=== PATIENT | female | born 1935 | race Two or more races ===

== ENCOUNTER 2016-08-16 18:16 | Inpatient (IN) | payer OTHER, MEDICAID ==
[~2016-08-16] VITALS: Ht 165.1 cm; Wt 107.0 kg
[2016-08-16 20:17] LABS: Albumin 2.8 g/dL (3.4-5.0); BUN/Creatinine Ratio 36.8; Calcium 8.1 mg/dL (8.5-10.1); Magnesium 3.2 mg/dL (1.6-2.6); Potassium 4.9 mmol/L (3.5-5.1)
[2016-08-16 20:20] LABS: Bilirubin, Total 10.1 mg/dL (0.2-1.0); Total Protein 5.9 g/dL (6.4-8.2)
[2016-08-16] MEDS ORDERED: SODIUM CHLORIDE 0.9% 1,000 ML IV ONE (20:47)
[2016-08-16 20:48] LABS: Basophils # (auto) 0.1 uL; Basophils % (auto) 2.2 % (0.0-2.0); Eosinophils # (auto) 0 uL; Eosinophils % (auto) 0.1 % (0.0-7.0); Lymphocytes # (auto) 0.5 uL; Lymphocytes % (auto) 8.2 % (10.0-50.0); Monocytes # (auto) 0.3 uL; Monocytes % (auto) 4.6 % (0.0-12.0); Neutrophils # (auto) 5.6 uL; Neutrophils % (auto) 84.9 % (37.0-80.0); White Blood Cell 6.5 10^3/uL (4.4-10.8)
[2016-08-16 20:49] LABS: Anisocytosis Moderate; Hematocrit 27.6 % (36.0-46.0); Hemoglobin 8.8 g/dL (12.2-16.2); Mean Corpuscular Hgb Conc. 31.8 g/dL (32.0-36.0); Mean Corpuscular Volume 81.9 fL (80.0-100.0); Mean Platelet Volume 9.6 fL (7.4-10.4); Platelet Count (auto) 106 10^3/uL (140-450); Platelet Estimate Decreased
[2016-08-16 20:50] LABS: Hypochromia Moderate; Ovalocytes FEW
[2016-08-16 22:02] LABS: Basophils # (auto) 0 uL; DEFINITIVE VIEW TRANSMISSION; Eosinophils # (auto) 0 uL; Eosinophils % (auto) 0.2 % (0.0-7.0); Hematocrit 26.6 % (36.0-46.0); Hemoglobin 8.3 g/dL (12.2-16.2); Lymphocytes # (auto) 0.4 uL; Lymphocytes % (auto) 5.4 % (10.0-50.0); Mean Corpuscular Hemoglobin 25.7 pg (28.0-32.0); Mean Corpuscular Hgb Conc. 31.2 g/dL (32.0-36.0); Mean Corpuscular Volume 82.3 fL (80.0-100.0); Mean Platelet Volume 9.6 fL (7.4-10.4); Monocytes # (auto) 0.5 uL; Monocytes % (auto) 7.6 % (0.0-12.0); Neutrophils # (auto) 5.6 uL; Neutrophils % (auto) 86.8 % (37.0-80.0); Platelet Count (auto) 146 10^3/uL (140-450); White Blood Cell 6.4 10^3/uL (4.4-10.8)
[2016-08-16 22:05] LABS: Red Cell Distribution Width 24.2 % (11.6-16.0)
[2016-08-16 22:16] LABS: Albumin 2.8 g/dL (3.4-5.0); BUN/Creatinine Ratio 37.1; Calcium 8.3 mg/dL (8.5-10.1); Magnesium 3.3 mg/dL (1.6-2.6); Potassium 4.8 mmol/L (3.5-5.1); Total Protein 5.9 g/dL (6.4-8.2)
[2016-08-16 22:20] LABS: Bilirubin, Total 9.9 mg/dL (0.2-1.0)
[2016-08-16 22:42] LABS: Anisocytosis Moderate; Hypochromia Moderate; Ovalocytes FEW; Platelet Estimate Adequate
[2016-08-16 22:43] LABS: Stomatocytes Few
[2016-08-16] MEDS ORDERED: FUROSEMIDE 40 MG/4 ML VIAL IV ONE (23:15)
[2016-08-17] VITALS (9 sets, daily range): BP systolic 84–104; BP diastolic 42–70
[2016-08-17 00:51] LABS: INR > 10 (0.9-1.15)
[2016-08-17] MEDS ORDERED: PHYTONADIONE (VIT K)10 MG/ML 1ML VIAL SUBCUT ONE (01:15)
[2016-08-17 05:50] LABS: Temperature: 20.4 C (20.0-25.0)
[2016-08-17] MEDS ORDERED: NITROGLYCERIN 0.4 MG SL TAB SL PRN (06:15)
[2016-08-17] MEDS ORDERED: MORPHINE SULF INJ 2 MG/ML SYRINGE 1ML IV PRN (06:15)
[2016-08-17] MEDS ORDERED: HYDROcodone-ACET 5/325MG TAB PO PRN (06:15)
[2016-08-17] MEDS ORDERED: FUROSEMIDE 20 MG/2 ML VIAL IV ONE (06:15)
[2016-08-17] MEDS ORDERED: ONDANSETRON HCL 4 MG/2 ML VIAL IV PRN (06:15)
[2016-08-17] MEDS ORDERED: ACETAMINOPHEN 325 MG TAB PO PRN (06:15)
[2016-08-17] MEDS ORDERED: ALBUMIN 25% 50 ML IV ONE (06:15)
[2016-08-17 09:36] LABS: INR 3.3 (0.9-1.15); Partial Thromboplastin Time 54.5 sec (22.64-33.71); Prothrombin Time 34.8 sec (9.37-12.3)
[2016-08-17] MEDS ORDERED: FUROSEMIDE 40 MG TAB PO SCH (10:00)
[2016-08-17] MEDS: PANTOPRAZOLE SODIUM 40 MG/10 ML VIAL IV SCH ×2 (10:11→21:45)
[2016-08-17] MEDS ORDERED: HYDR12.56 PO (11:29)
[2016-08-17] MEDS ORDERED: WARF3TAB22 PO (11:29)
[2016-08-17 15:11] LABS: Partial Thromboplastin Time 52.5 sec (22.64-33.71); Prothrombin Time 43.8 sec (9.37-12.3)
[2016-08-17 15:13] LABS: INR 4.18 (0.9-1.15)
[2016-08-17] MEDS: BUMETANIDE (0.25 MG/ML) INJ 10ML IV SCH (18:00)
[2016-08-18] VITALS (8 sets, daily range): BP systolic 79–101; BP diastolic 30–53
[2016-08-18] MEDS: BUMETANIDE (0.25 MG/ML) INJ 10ML IV SCH ×2 (05:45→18:54)
[2016-08-18 07:49] LABS: Urine Bilirubin Negative (Negative); Urine Color Yellow (Yellow); Urine Glucose Normal (Normal); Urine Hyaline Cast MOD /lpf (0 - 2); Urine Ketone Negative (Negative); Urine Nitrite Negative (Negative); Urine RBC 100 /hpf (0 - 4); Urine Squamous Epithelial Cell FEW /hpf (<5)
[2016-08-18 07:56] LABS: DEFINITIVE VIEW TRANSMISSION; Hematocrit 23.8 % (36.0-46.0); Hemoglobin 7.5 g/dL (12.2-16.2); Mean Corpuscular Hgb Conc. 31.4 g/dL (32.0-36.0); Mean Corpuscular Volume 82.6 fL (80.0-100.0); Mean Platelet Volume 9.8 fL (7.4-10.4); Platelet Count (auto) 107 10^3/uL (140-450); White Blood Cell 9.5 10^3/uL (4.4-10.8)
[2016-08-18 07:58] LABS: Urine Blood 2+ /uL (Negative)
[2016-08-18 08:08] LABS: Albumin 3.1 g/dL (3.4-5.0); BUN/Creatinine Ratio 38.2; Bilirubin, Total 11.2 mg/dL (0.2-1.0); Calcium 8.7 mg/dL (8.5-10.1); Phosphorus 3.7 mg/dL (2.5-4.90); Potassium 3.6 mmol/L (3.5-5.1); Total Protein 6.3 g/dL (6.4-8.2)
[2016-08-18 08:20] LABS: Red Cell Distribution Width 24.1 % (11.6-16.0)
[2016-08-18 08:21] LABS: Metamyelocytes % 0; Myelocytes % 0; Promyelocytes % 0; Reactive Lymphocytes 0
[2016-08-18 08:24] LABS: INR 3.35 (0.9-1.15); Partial Thromboplastin Time 45.2 sec (22.64-33.71); Prothrombin Time 35.3 sec (9.37-12.3)
[2016-08-18] MEDS: PANTOPRAZOLE SODIUM 40 MG/10 ML VIAL IV SCH ×2 (10:15→21:51)
[2016-08-18 19:34] LABS: Platelet Estimate Decreased
[2016-08-18 19:35] LABS: Anisocytosis Moderate; Hypochromia Moderate; Ovalocytes FEW
[2016-08-18] MEDS: POTASSIUM CHL 20MEQ/100ML 100 ML IV SCH ×2 (20:00→21:51)
[2016-08-19 04:55] VITALS: BP 84/39
[2016-08-19] MEDS: BUMETANIDE (0.25 MG/ML) INJ 10ML IV SCH (06:00)
[2016-08-19 06:16] LABS: Calcium 8.6 mg/dL (8.5-10.1)
[2016-08-19 06:19] LABS: Bilirubin, Total 12.1 mg/dL (0.2-1.0)
[2016-08-19 06:23] LABS: BUN/Creatinine Ratio 37.3
[2016-08-19 08:54] VITALS: BP 95/43
[2016-08-19] MEDS: PANTOPRAZOLE SODIUM 40 MG/10 ML VIAL IV SCH (11:02)
[2016-08-19 12:51] VITALS: BP 88/65
[2016-08-19 13:07] VITALS: BP 88/65
[2016-08-20 08:10] LABS: Vitamin D 25-Hydroxy 9.6 ng/mL (.); Vitamin D-2 25-Hydroxy <1.0 ng/mL (.)
== END 2016-08-19 15:22 | disposition hospice, home (50) | DRG 441 ==
LOC: ER 18:21 → TELE 18:22 → WEST WING 08-17 11:23
PROVIDERS: ADMIT Nurse Practitioner; ATTEND Internal Medicine Pulmonary Disease
PROC: 30233L1 Transfusion of Nonautologous Fresh Plasma into Peripheral Vein, Percutaneous Approach (ICD-10-PCS; principal; 2016-08-17)
PROC: 30233K1 Transfusion of Nonautologous Frozen Plasma into Peripheral Vein, Percutaneous Approach (ICD-10-PCS; 2016-08-17)
DX: K72.00 Acute and subacute hepatic failure without coma (principal); I50.23 Acute on chronic systolic (congestive) heart failure; N17.0 Acute kidney failure with tubular necrosis; I62.01 Nontraumatic acute subdural hemorrhage; I62.03 Nontraumatic chronic subdural hemorrhage; E43 Unspecified severe protein-calorie malnutrition; I13.0 Hypertensive heart and chronic kidney disease with heart failure and stage 1 through stage 4 chronic kidney disease, or unspecified chronic kidney disease; N18.4 Chronic kidney disease, stage 4 (severe); D68.69 Other thrombophilia; K80.11 Calculus of gallbladder with chronic cholecystitis with obstruction; R18.8 Other ascites; I42.9 Cardiomyopathy, unspecified; I48.2 Chronic atrial fibrillation; E78.5 Hyperlipidemia, unspecified; D64.9 Anemia, unspecified; E66.01 Morbid (severe) obesity due to excess calories; F03.90 Unspecified dementia, unspecified severity, without behavioral disturbance, psychotic disturbance, mood disturbance, and anxiety; M47.9 Spondylosis, unspecified; Z51.5 Encounter for palliative care; N28.1 Cyst of kidney, acquired; Z74.01 Bed confinement status; Z82.49 Family history of ischemic heart disease and other diseases of the circulatory system; Z83.3 Family history of diabetes mellitus; Z86.73 Personal history of transient ischemic attack (TIA), and cerebral infarction without residual deficits; Z87.891 Personal history of nicotine dependence; T45.515A Adverse effect of anticoagulants, initial encounter; Y92.89 Other specified places as the place of occurrence of the external cause; M81.0 Age-related osteoporosis without current pathological fracture
CPT/HCPCS: 36415; 36430; 51702; 70450; 71010; 74176; 76705; 76775; 80053; 81001; 82140; 82150; 82306; 82570; 82962; 83690; 83735; 83880; 83970; 84100; 84156; 84300; 84484; 85007; 85025; 85027; 85610; 85730; 86850; 86900; 86901; 87086; 87088; 87186; 93005; 93306; 94761; 96361; 96365; 96372; 96375; C9113; J3430; J3480